=== PATIENT | female | born 1995 | race Caucasian/White ===

== ENCOUNTER → 2017-12-09 | Outpatient (CLI) | payer OTHER ==
--- NOTE | 2017-12-10 08:11 | MR ---
EXAMINATION TYPE: MR brain wo con DATE OF EXAM: 12/09/2017 COMPARISON: No prior available at this institution. HISTORY: Headaches; Arachnoid cyst TECHNIQUE: Multiplanar, multisequence images of the brain and brainstem is performed without intravenous contras t. The patient also was offered intravenous contrast and declined. FINDINGS: There is a T2/FLAIR hyperintense left frontal extra-axial lesion with mass effect upon the frontal gyri and sulci although no subsequent edema is seen within the white matter of the left front al lobe. This does not restricted diffusion. This measures 5.9 x 2.1 x 5.2 cm in longitudinal by ante rior posterior by craniocaudal dimension on T2 axial fat sat and T2 coronal nonfat sat image 20 and 5 respectively. No others suspicious extra cranial fluid collections are seen. Diffusion weighted images demonstrate no evidence of a recent infarct or other diffusion abnormality. There is no extra-axial fluid collection or significant white matter signal abnormality. The ventr icular system and cisternal spaces are normal in size and appearance. The brain volume is age approp riate. Midline structures demonstrate normal morphology. The craniocervical junction appears within normal limits. The dural venous sinuses appear patent. There is mild leftward nasal septal deviation. Scant mucosal thickening is seen within the ethmoid sinuses. The remaining visualized sinuses are clear and the globes are intact. T2/FLAIR hyperintense bilateral parotid lesions have the appearance of intrap arotid lymph nodes. IMPRESSION: 1. Left frontal extra-axial fluid intensity lesion measuring up to 5.9 cm most compatible with an ortiz chnoid cyst with mass effect upon the left frontal lobe and no resultant intracranial edema or gliosi s. No midline shift. 2. Very mild ethmoid paranasal sinus disease.
== END | disposition home or self-care (01) ==
LOC: RADMRIMAIN 12:33
PROVIDERS: ATTEND Physician Assistant
DX: G93.0 Cerebral cysts (principal); J32.2 Chronic ethmoidal sinusitis
CPT/HCPCS: 70551

== ENCOUNTER 2020-03-03 18:19 | Emergency (ER) | payer OTHER ==
[2020-03-03 18:25] VITALS: BP 116/76; PULSE 77; RESP 18; TEMP 97.9
--- NOTE | 2020-03-03 20:02 | ED ---
General Adult HPI - General Chief complaint: ENT Stated complaint: Poss oral abscess Time Seen by Provider: 03/03/20 18:40 Source: patient, RN notes reviewed, old records reviewed Mode of arrival: ambulatory Limitations: no limitations - History of Present Illness Initial comments: 24-year-old female patient ED for evaluation of sore throat. She reports that she had a mild sore throat for couple days. She also reports that she had a little bit of discomfort in her right side anterior cervical lymph nodes. She was concerned because it appeared that she had some tonsillar exudates last night so she wanted to be evaluated today. She denies any other acute complaints. She denies any fevers. Systemic: Pt denies fatigue, fever/chills, rash. Pt denies weakness, night sweats, weight loss. Neuro: Pt denies headache, visual disturbances, syncope or pre-syncope. HEENT: Pt denies ocular discharge or irritation, otalgia, rhinorrhea, pharyngitis or notable lymphadenopathy. Cardiopulmonary: Pt denies chest pain, SOB, heart palpitations, dyspnea on exertion. Abdominal/GI: Pt denies abdominal pain, n/v/d. : Pt denies dysuria, burning w/ urination, frequency/urgency. Denies new onset urinary or bowel incontinence. MSK: Pt denies myalgia, loss of strength or function in extremities. Neuro: Pt denies new onset weakness, paresthesias. - Related Data Allergies Allergy/AdvReac Type Severity Reaction Status Date / Time No Known Allergies Allergy Verified 03/03/20 18:25 Review of Systems ROS Statement: Those systems with pertinent positive or pertinent negative responses have been documented in the HPI. ROS Other: All systems not noted in ROS Statement are negative. Past Medical History Additional Past Medical History / Comment(s): brain cyst. History of Any Multi-Drug Resistant Organisms: None Reported Past Surgical History: No Surgical Hx Reported Past Psychological History: No Psychological Hx Reported Smoking Status: Never smoker Past Alcohol Use History: None Reported Past Drug Use History: None Reported General Exam - General Exam Comments Initial Comments: Constitutional: NAD, AOX3, Pt has pleasant affect. HEENT: NC/AT, trachea midline, neck supple, mild anterior cervical lympadenopathy. Posterior pharynx non erythematous, without exudates. External ears appear normal, without discharge. Mucous membranes moist. Eyes PERRLA, EOM intact. There is no scleral icterus. No pallor noted. Cardiopulmonary: RRR, no murmurs, rubs or gallops, no JVD noted. Lungs CTAB in anterior and posterior ferrer. No peripheral edema. Abdominal exam: Abdomen soft and non-distended. Abdomen non-tender to palpation in all 4 quadrants. Bowel sounds active in LLQ. No hepatosplenomegaly. No ecchymosis Neuro: CN II-XII grossly intact. No nuchal rigidity. MSK: No posterior calf tenderness bilaterally, homans sign negative bilaterally. Posterior tibialis and radial pulse +2 bilaterally. Sensation intact in upper and lower extremities. Full active ROM in upper and lower extremities, 5/5 stregnth. Limitations: no limitations Course Vital Signs 03/03/20 18:22 Temperature 97.9 F Pulse Rate 77 Respiratory 18 Rate Blood Pressure 116/76 O2 Sat by Pulse 100 Oximetry Medical Decision Making - Medical Decision Making 24-year-old female patient ED for evaluation of sore throat. She reports that she had a mild sore throat for couple days. She also reports that she had a little bit of discomfort in her right side anterior cervical lymph nodes. She was concerned because it appeared that she had some tonsillar exudates last night so she wanted to be evaluated today. She denies any other acute complaints. She denies any fevers. Pt VSS, afebrile. Physical exam displayed: Posterior pharynx non erythematous, without exudates. There is a mild right-s ided anterior cervical lymphadenopathy noted no skin changes or erythema. Group A strep is negative. Culture pending. Patient was experiencing a viral pharyngitis X syndrome. She'll be discharged outpatient follow-up supportive care and return precautions. She is agreeable to plan. Case discussed with Dr. Claire. - Lab Data Lab Results 03/03/20 Range/Units 19:00 Group A Strep Rapid Negative (Negative) Disposition Clinical Impression: Pharyngitis Disposition: HOME SELF-CARE Condition: Stable Instructions (If sedation given, give patient instructions): Pharyngitis (ED) Additional Instructions: Follow up with PCP tomorrow. Return to ED with any worsening symptoms. Is patient prescribed a controlled substance at d/c from ED?: No Referrals: Valerie Barlow MD [Primary Care Provider] - 1-2 days
== END 2020-03-03 20:12 | disposition home or self-care (01) ==
LOC: EC 18:19
DX: J02.9 Acute pharyngitis, unspecified (principal)
CPT/HCPCS: 87081; 87430; 99283

== ENCOUNTER 2020-06-15 12:11 | Emergency (ER) | payer OTHER ==
[2020-06-15 12:47] VITALS: RESP 18
[2020-06-15 13:55] LABS: ALT 34 U/L (4-34); AST 25 U/L (14-36); African American GFR (CKD) >90 (>60 ml/min/1.73 sqM); Albumin 4.9 g/dL (3.5-5.0); Alkaline Phosphatase 72 U/L (38-126); Anion Gap 11 mmol/L; Blood Urea Nitrogen 6 mg/dL (7-17); Calcium 10.1 mg/dL (8.4-10.2); Carbon Dioxide 26 mmol/L (22-30); Chloride 102 mmol/L (98-107); Glucose 84 mg/dL (74-99); Non-African American GFR(CKD) >90 (>60 ml/min/1.73 sqM); Sodium 139 mmol/L (137-145); Total Bilirubin 0.6 mg/dL (0.2-1.3); Total Protein 8.1 g/dL (6.3-8.2)
[2020-06-15 14:01] LABS: Basophils % (A) 0 %; Eosinophils % (A) 0 %; HCT 42.4 % (34.0-46.0); HGB 13.8 gm/dL (11.4-16.0); Lymphocytes # (A) 1.5 k/uL (1.0-4.8); Lymphocytes % (A) 16 %; MCH 28.5 pg (25.0-35.0); MCHC 32.5 g/dL (31.0-37.0); MCV 87.7 fL (80.0-100.0); Mean Platelet Volume 7.3; Monocytes # (A) 0.3 k/uL (0-1.0); Monocytes % (A) 3 %; Neutrophils # (A) 7.2 k/uL (1.3-7.7); Neutrophils % (A) 79 %; Platelet Count 288 k/uL (150-450); RBC 4.83 m/uL (3.80-5.40); RDW 12.8 % (11.5-15.5); WBC 9.2 k/uL (3.8-10.6)
--- NOTE | 2020-06-15 14:12 | ED ---
General Adult HPI - General Source: patient Mode of arrival: ambulatory Limitations: no limitations <Trini Gamez - Last Filed: 06/15/20 14:34> <Jesse Angeles - Last Filed: 06/15/20 15:27> - General Chief complaint: Recheck/Abnormal Lab/Rx Stated complaint: possible blood clot-post J&J vaccine Time Seen by Provider: 06/15/20 12:45 - History of Present Illness Initial comments: 24-year-old female presenting to the emergency department today for chief complaint of sent by primary care provider. Patient states she had an elevated d-dimer. She had presented to her primary care provider for pain all over and having severe headaches after the [employer] vaccine. Patient denies any light sensitivity. She states she has had nosebleeds. Patient states that time she has burning in her chest, denies significant dyspnea. Denies chest pressure/pleuritic pain. Patient denies leg swelling, calf pain. Patient denies visual/speech changes, weakness, sensation deficits. Patient denies hx of surgery, immobilization she denies she denies control use she denies smoking history, she denies recent travel, cancer, IVDU. Patient appears nontoxic on arrival she is resting in bed in no distress. Pt admitted to being very health paranoid and was scared since the announcement of J&J vaccine pause. (Trini Gamez) CTA of the brain shows no acute abnormality. Chest x-ray shows no acute abnormality. (Jesse Angeles) - Related Data Allergies Allergy/AdvReac Type Severity Reaction Status Date / Time No Known Allergies Allergy Verified 06/15/20 12:41 Review of Systems ROS Other: All systems not noted in ROS Statement are negative. <Trini Gamez - Last Filed: 06/15/20 14:34> ROS Other: All systems not noted in ROS Statement are negative. <Jesse Angeles - Last Filed: 06/15/20 15:27> ROS Statement: Those systems with pertinent positive or pertinent negative responses have been documented in the HPI. Past Medical History Past Medical History: No Reported History Additional Past Medical History / Comment(s): brain cyst. orthostatic hypotension History of Any Multi-Drug Resistant Organisms: None Reported Past Surgical History: No Surgical Hx Reported Past Psychological History: Anxiety Smoking Status: Never smoker Past Alcohol Use History: None Reported Past Drug Use History: None Reported <Trini Gamez - Last Filed: 06/15/20 14:34> General Exam Limitations: no limitations <Trini Gamez - Last Filed: 06/15/20 14:34> - General Exam Comments Initial Comments: General: The patient is awake and alert, in no distress Eye: +3 mm pupils are equal, round and reactive to light, extra-ocular movements are intact. No nystagmus. There is normal conjunctiva bilaterally. No signs of icterus. Ears, nose, mouth and throat: There are moist mucous membranes and no oral lesions. Neck: The neck is supple, there is no tenderness or JVD. Cardiovascular: There is a regular rate and rhythm. No murmur, rub or gallop is appreciated. Respiratory: Lungs are clear to auscultation, respirations are non-labored, breath sounds are equal. No wheezes, stridor, rales, or rhonchi. Musculoskeletal: Normal ROM, no tenderness. Strength 5/5. Sensation intact. Radial and DP pulses equal bilaterally 2+. Neurological: A&O x 3. CN II-XII intact, There are no obvious motor or sensory deficits. Coordination appears grossly intact. Speech is normal. Skin: Skin is warm and dry and no rashes or lesions are noted. Psychiatric: Cooperative, appropriate mood & affect, normal judgment. (Trini Gamez) Course <Trini Gamez - Last Filed: 06/15/20 14:34> Vital Signs 06/15/20 12:42 Temperature 98.8 F Pulse Rate 95 Respiratory 18 Rate Blood Pressure 144/90 O2 Sat by Pulse 100 Oximetry - Reevaluation(s) Reevaluation #1: Discussed risk vs benefit of CTA of chest-pt states she was just told she needed this for burning in chest, and body pains. pt states she was worried around her brain due to the J&J vaccine. pt states she is very health paranoid-- she states she has had over [address] in her entire life. I discussed risk of radiation, that patient is PERC (-). I discussed with my attending patient case Dr. Astorga who is agreeable to fore-going CTA at this time as patient states she has headache, nose bleeds and thinks it is due to the vaccine. 06/15/20 14:08 (Trini Gamez) Reevaluation #2: signed out to Dr. Angeles aware of history/care plan/pending studies 06/15/20 14:34 (Trini Gamez) Medical Decision Making - Lab Data Result diagrams: 06/15/20 13:24 06/15/20 13:24 <Trini Gamez - Last Filed: 06/15/20 14:34> - Lab Data Result diagrams: 06/15/20 13:24 06/15/20 13:24 <Jesse Angeles - Last Filed: 06/15/20 15:27> - Lab Data Lab Results 06/15/20 06/15/20 Range/Units 13:24 13:24 WBC 9.2 (3.8-10.6) k/uL RBC 4.83 (3.80-5.40) m/uL Hgb 13.8 (11.4-16.0) gm/dL Hct 42.4 (34.0-46.0) % MCV 87.7 (80.0-100.0) fL MCH 28.5 (25.0-35.0) pg MCHC 32.5 (31.0-37.0) g/dL RDW 12.8 (11.5-15.5) % Plt Count 288 (150-450) k/uL MPV 7.3 Neutrophils % 79 % Lymphocytes % 16 % Monocytes % 3 % Eosinophils % 0 % Basophils % 0 % Neutrophils # 7.2 (1.3-7.7) k/uL Lymphocytes # 1.5 (1.0-4.8) k/uL Monocytes # 0.3 (0-1.0) k/uL Eosinophils # 0.0 (0-0.7) k/uL Basophils # 0.0 (0-0.2) k/uL Sodium 139 (137-145) mmol/L Potassium 4.0 (3.5-5.1) mmol/L Chloride 102 (98-107) mmol/L Carbon Dioxide 26 (22-30) mmol/L Anion Gap 11 mmol/L BUN 6 L (7-17) mg/dL Creatinine 0.71 (0.52-1.04) mg/dL Est GFR (CKD-EPI)AfAm >90 (>60 ml/min/1.73 sqM) Est GFR (CKD-EPI)NonAf >90 (>60 ml/min/1.73 sqM) Glucose 84 (74-99) mg/dL Calcium 10.1 (8.4-10.2) mg/dL Total Bilirubin 0.6 (0.2-1.3) mg/dL AST 25 (14-36) U/L ALT 34 (4-34) U/L Alkaline Phosphatase 72 (38-126) U/L Total Protein 8.1 (6.3-8.2) g/dL Albumin 4.9 (3.5-5.0) g/dL Disposition <Trini Gamez - Last Filed: 06/15/20 14:34> Is patient prescribed a controlled substance at d/c from ED?: No Time of Disposition: 15:27 <Jesse Angeles - Last Filed: 06/15/20 15:27> Clinical Impression: Headache Disposition: HOME SELF-CARE Condition: Good Instructions (If sedation given, give patient instructions): Acute Headache (ED) Referrals: Valerie Barlow MD [Primary Care Provider] - 1-2 days
--- NOTE | 2020-06-15 14:34 | CT ---
EXAMINATION TYPE: CT brain wo/w con DATE OF EXAM: 06/15/2020 COMPARISON: MR brain 12/09/2018 HISTORY: [place], J&J side effects CT DLP: 2188.4 mGycm Automated Exposure Control for Dose Reduction was Utilized. TECHNIQUE: CT scan of the head is performed with IV contrast.,CT scan of the head is performed withou t and with without and with IV Contrast, patient injected with 100 mL of Isovue 300. FINDINGS: Hypodense focus corresponding to the abnormality described in prior brain MRI is noted at the left frontal region with some local mass effect consistent with arachnoid cyst, there is remodeli ng of the inner table of the calvarium. Noncontrast images show no acute intracranial hemorrhage or m idline shift. The ventricles and sulci are within normal limits in size. Postcontrast images show no suspicious enhancing intraparenchymal mass. The globes are intact and the visualized sinuses are olivia r. IMPRESSION: There is an arachnoid cyst as described in prior brain MRI. No abnormal enhancement. No h ydrocephalus or evident hemorrhage.
--- NOTE | 2020-06-15 14:48 | XR ---
EXAMINATION TYPE: XR chest 2V DATE OF EXAM: 06/15/2020 COMPARISON: 09/18/2008 INDICATION: Headache, burning TECHNIQUE: Frontal and lateral views of the chest are obtained. FINDINGS: The heart size is normal. The pulmonary vasculature is normal. The lungs are clear. IMPRESSION: 1. No acute pulmonary process.
[2020-06-15 15:29] VITALS: BP 114/66; PULSE 98; TEMP 98.2
== END 2020-06-15 15:55 | disposition home or self-care (01) ==
LOC: EC 12:11
DX: R51.9 Headache, unspecified (principal)
CPT/HCPCS: 36415; 80053; 85025; 71046; 70470; 99284; Q9967

== ENCOUNTER 2020-06-17 09:51 | Emergency (ER) | payer OTHER ==
[2020-06-17 10:02] VITALS: TEMP 97.9
[2020-06-17] MEDS ORDERED: SODIUM CHLORIDE 0.9% 1,000 ML IV STA (12:11)
[2020-06-17] MEDS ORDERED: KETOROLAC 15 MG/ML 1 ML VIAL IVP STA (12:12)
--- NOTE | 2020-06-17 12:20 | ED ---
SOB HPI - General Chief Complaint: Shortness of Breath Stated Complaint: Heart Palpatations/Racing Time Seen by Provider: 06/17/20 11:45 Source: patient, RN notes reviewed Mode of arrival: wheelchair Limitations: no limitations - History of Present Illness Initial Comments: This is a 24-year-old female who did receive the [employer] COVID-19 shot and also was here 2 days with emergency department for complaints of not feeling well basically who is here today with complaints of palpitations and shortness of breath and bilateral leg pain body aches headache she states she has chest pain goes were back. She is doesn't feel well. She was have bilateral venous Dopplers of her legs today but her family physician advised to just come and get evaluated. She currently had a CAT scan of brain done any other day which was negative and x-ray which was negative. She is complaining of increased symptoms. She did have a mildly elevated d-dimer and the knee. Additionally she states she had a last period was the fifth through the 10th of this month. She denies any chest pain . MD Complaint: shortness of breath, chest pain - Related Data Previous Rx's Medication Instructions Recorded Cephalexin [Keflex] 250 mg PO Q6HR #28 cap 06/17/20 Allergies Allergy/AdvReac Type Severity Reaction Status Date / Time No Known Allergies Allergy Verified 06/17/20 12:53 Review of Systems ROS Statement: Those systems with pertinent positive or pertinent negative responses have been documented in the HPI. ROS Other: All systems not noted in ROS Statement are negative. Past Medical History Past Medical History: No Reported History Additional Past Medical History / Comment(s): brain cyst. orthostatic hypotension History of Any Multi-Drug Resistant Organisms: None Reported Past Surgical History: No Surgical Hx Reported Past Psychological History: Anxiety Smoking Status: Never smoker Past Alcohol Use History: None Reported Past Drug Use History: None Reported General Exam - General Exam Comments Initial Comments: This is a well-developed well-nourished awake alert oriented 3 female Limitations: no limitations General appearance: alert, anxious Head exam: Present: atraumatic, normocephalic, normal inspection Eye exam: Present: normal appearance, PERRL, EOMI. Absent: scleral icterus, conjunctival injection, periorbital swelling ENT exam: Present: normal exam, mucous membranes moist Neck exam: Present: normal inspection, full ROM, other (Those Phenergan or bruits). Absent: tenderness, meningismus, lymphadenopathy Respiratory exam: Present: normal lung sounds bilaterally. Absent: respiratory distress, wheezes, rales, rhonchi, stridor Cardiovascular Exam: Present: regular rate, normal rhythm, normal heart sounds. Absent: systolic murmur, diastolic murmur, rubs, gallop, clicks GI/Abdominal exam: Present: soft, normal bowel sounds. Absent: distended, tenderness, guarding, rebound, rigid Extremities exam: Present: normal inspection, full ROM, normal capillary refill. Absent: tenderness, pedal edema, joint swelling, calf tenderness Back exam: Present: normal inspection Neurological exam: Present: alert, oriented X3, CN II-XII intact Psychiatric exam: Present: normal affect, normal mood Skin exam: Present: warm, dry, intact, normal color. Absent: rash Course Vital Signs 06/17/20 06/17/20 09:57 11:03 Temperature 97.9 F Pulse Rate 97 76 Respiratory 18 18 Rate Blood Pressure 119/74 102/60 O2 Sat by Pulse 99 100 Oximetry Medical Decision Making - Medical Decision Making I did discuss the findings with the patient. Imaging studies are negative at work is negative the UA however show evidence of UTI. Based on appropriate medication she is a follow-up with her doctor and return if any problems. At this time post Covid shot etiology for the symptoms cannot be ruled out complete ly. - Lab Data Result diagrams: 06/17/20 12:39 06/17/20 12:39 Lab Results 06/17/20 06/17/20 06/17/20 Range/Units 12:39 12:39 12:39 WBC 9.3 (3.8-10.6) k/uL RBC 4.74 (3.80-5.40) m/uL Hgb 14.2 (11.4-16.0) gm/dL Hct 40.8 (34.0-46.0) % MCV 86.0 (80.0-100.0) fL MCH 29.9 (25.0-35.0) pg MCHC 34.7 (31.0-37.0) g/dL RDW 12.2 (11.5-15.5) % Plt Count 301 (150-450) k/uL MPV 7.0 Neutrophils % 75 % Lymphocytes % 18 % Monocytes % 5 % Eosinophils % 1 % Basophils % 0 % Neutrophils # 6.9 (1.3-7.7) k/uL Lymphocytes # 1.7 (1.0-4.8) k/uL Monocytes # 0.5 (0-1.0) k/uL Eosinophils # 0.1 (0-0.7) k/uL Basophils # 0.0 (0-0.2) k/uL PT 10.6 (9.0-12.0) sec INR 1.0 (<1.2) APTT 22.0 (22.0-30.0) sec D-Dimer 0.51 (<0.60) mg/L FEU Sodium 141 (137-145) mmol/L Potassium 4.0 (3.5-5.1) mmol/L Chloride 104 (98-107) mmol/L Carbon Dioxide 27 (22-30) mmol/L Anion Gap 10 mmol/L BUN 7 (7-17) mg/dL Creatinine 0.63 (0.52-1.04) mg/dL Est GFR (CKD-EPI)AfAm >90 (>60 ml/min/1.73 sqM) Est GFR (CKD-EPI)NonAf >90 (>60 ml/min/1.73 sqM) Glucose 94 (74-99) mg/dL Plasma Lactic Acid Miguel Angel (0.7-2.0) mmol/L Calcium 9.8 (8.4-10.2) mg/dL Magnesium 2.2 (1.6-2.3) mg/dL Total Bilirubin 0.6 (0.2-1.3) mg/dL AST 27 (14-36) U/L ALT 37 H (4-34) U/L Alkaline Phosphatase 72 (38-126) U/L Creatine Kinase 34 (30-135) U/L Troponin I (0.000-0.034) ng/mL NT-Pro-B Natriuret Pep pg/mL Total Protein 8.1 (6.3-8.2) g/dL Albumin 4.8 (3.5-5.0) g/dL Urine Color Urine Appearance (Clear) Urine pH (5.0-8.0) Ur Specific Bruin (1.001-1.035) Urine Protein (Negative) Urine Glucose (UA) (Negative) Urine Ketones (Negative) Urine Blood (Negative) Urine Nitrite (Negative) Urine Bilirubin (Negative) Urine Urobilinogen (<2.0) mg/dL Ur Leukocyte Esterase (Negative) Urine WBC (0-5) /hpf Ur Squamous Epith Cells (0-4) /hpf Urine Bacteria (None) /hpf Urine Mucus (None) /hpf Coronavirus (PCR) (Not Detectd) 06/17/20 06/17/20 06/17/20 Range/Units 12:39 12:39 12:39 WBC (3.8-10.6) k/uL RBC (3.80-5.40) m/uL Hgb (11.4-16.0) gm/dL Hct (34.0-46.0) % MCV (80.0-100.0) fL MCH (25.0-35.0) pg MCHC (31.0-37.0) g/dL RDW (11.5-15.5) % Plt Count (150-450) k/uL MPV Neutrophils % % Lymphocytes % % Monocytes % % Eosinophils % % Basophils % % Neutrophils # (1.3-7.7) k/uL Lymphocytes # (1.0-4.8) k/uL Monocytes # (0-1.0) k/uL Eosinophils # (0-0.7) k/uL Basophils # (0-0.2) k/uL PT (9.0-12.0) sec INR (<1.2) APTT (22.0-30.0) sec D-Dimer (<0.60) mg/L FEU Sodium (137-145) mmol/L Potassium (3.5-5.1) mmol/L Chloride (98-107) mmol/L Carbon Dioxide (22-30) mmol/L Anion Gap mmol/L BUN (7-17) mg/dL Creatinine (0.52-1.04) mg/dL Est GFR (CKD-EPI)AfAm (>60 ml/min/1.73 sqM) Est GFR (CKD-EPI)NonAf (>60 ml/min/1.73 sqM) Glucose (74-99) mg/dL Plasma Lactic Acid Miguel Angel 1.0 (0.7-2.0) mmol/L Calcium (8.4-10.2) mg/dL Magnesium (1.6-2.3) mg/dL Total Bilirubin (0.2-1.3) mg/dL AST (14-36) U/L ALT (4-34) U/L Alkaline Phosphatase (38-126) U/L Creatine Kinase (30-135) U/L Troponin I <0.012 (0.000-0.034) ng/mL NT-Pro-B Natriuret Pep 22 pg/mL Total Protein (6.3-8.2) g/dL Albumin (3.5-5.0) g/dL Urine Color Urine Appearance (Clear) Urine pH (5.0-8.0) Ur Specific Bruin (1.001-1.035) Urine Protein (Negative) Urine Glucose (UA) (Negative) Urine Ketones (Negative) Urine Blood (Negative) Urine Nitrite (Negative) Urine Bilirubin (Negative) Urine Urobilinogen (<2.0) mg/dL Ur Leukocyte Esterase (Negative) Urine WBC (0-5) /hpf Ur Squamous Epith Cells (0-4) /hpf Urine Bacteria (None) /hpf Urine Mucus (None) /hpf Coronavirus (PCR) (Not Detectd) 06/17/20 06/17/20 Range/Units 12:39 12:39 WBC (3.8-10.6) k/uL RBC (3.80-5.40) m/uL Hgb (11.4-16.0) gm/dL Hct (34.0-46.0) % MCV (80.0-100.0) fL MCH (25.0-35.0) pg MCHC (31.0-37.0) g/dL RDW (11.5-15.5) % Plt Count (150-450) k/uL MPV Neutrophils % % Lymphocytes % % Monocytes % % Eosinophils % % Basophils % % Neutrophils # (1.3-7.7) k/uL Lymphocytes # (1.0-4.8) k/uL Monocytes # (0-1.0) k/uL Eosinophils # (0-0.7) k/uL Basophils # (0-0.2) k/uL PT (9.0-12.0) sec INR (<1.2) APTT (22.0-30.0) sec D-Dimer (<0.60) mg/L FEU Sodium (137-145) mmol/L Potassium (3.5-5.1) mmol/L Chloride (98-107) mmol/L Carbon Dioxide (22-30) mmol/L Anion Gap mmol/L BUN (7-17) mg/dL Creatinine (0.52-1.04) mg/dL Est GFR (CKD-EPI)AfAm (>60 ml/min/1.73 sqM) Est GFR (CKD-EPI)NonAf (>60 ml/min/1.73 sqM) Glucose (74-99) mg/dL Plasma Lactic Acid Miguel Angel (0.7-2.0) mmol/L Calcium (8.4-10.2) mg/dL Magnesium (1.6-2.3) mg/dL Total Bilirubin (0.2-1.3) mg/dL AST (14-36) U/L ALT (4-34) U/L Alkaline Phosphatase (38-126) U/L Creatine Kinase (30-135) U/L Troponin I (0.000-0.034) ng/mL NT-Pro-B Natriuret Pep pg/mL Total Protein (6.3-8.2) g/dL Albumin (3.5-5.0) g/dL Urine Color Yellow Urine Appearance Cloudy H (Clear) Urine pH 7.5 (5.0-8.0) Ur Specific Bruin 1.003 (1.001-1.035) Urine Protein Negative (Negative) Urine Glucose (UA) Negative (Negative) Urine Ketones Negative (Negative) Urine Blood Negative (Negative) Urine Nitrite Negative (Negative) Urine Bilirubin Negative (Negative) Urine Urobilinogen <2.0 (<2.0) mg/dL Ur Leukocyte Esterase Large H (Negative) Urine WBC 8 H (0-5) /hpf Ur Squamous Epith Cells 6 H (0-4) /hpf Urine Bacteria Many H (None) /hpf Urine Mucus Rare H (None) /hpf Coronavirus (PCR) Not Detected (Not Detectd) - EKG Data -: EKG Interpreted by Me EKG shows normal: sinus rhythm EKG Comments: Sinus tachycardia rate 114 [place] interval 124 QRS 94 QT since QTC 320/441 nonspecific T-wave configuration - Radiology Data Radiology results: report reviewed (G reviewed no evidence of DVT chest x-ray clear.), image reviewed Disposition Clinical Impression: Urinary tract infection, Myalgia Disposition: HOME SELF-CARE Condition: Good Instructions (If sedation given, give patient instructions): Urinary Tract Infection in Women (ED), Musculoskeletal Pain (ED) Additional Instructions: Symptomatic treatment with Tylenol or Advil. Prescriptions: Cephalexin [Keflex] 250 mg PO Q6HR #28 cap Is patient prescribed a controlled substance at d/c from ED?: No Referrals: Valerie Barlow MD [Primary Care Provider] - 1-2 days
[2020-06-17 13:07] LABS: Basophils % (A) 0 %; Eosinophils # (A) 0.1 k/uL (0-0.7); Eosinophils % (A) 1 %; HCT 40.8 % (34.0-46.0); HGB 14.2 gm/dL (11.4-16.0); Lymphocytes # (A) 1.7 k/uL (1.0-4.8); Lymphocytes % (A) 18 %; MCH 29.9 pg (25.0-35.0); MCHC 34.7 g/dL (31.0-37.0); Monocytes # (A) 0.5 k/uL (0-1.0); Monocytes % (A) 5 %; Neutrophils # (A) 6.9 k/uL (1.3-7.7); Neutrophils % (A) 75 %; Platelet Count 301 k/uL (150-450); RBC 4.74 m/uL (3.80-5.40); RDW 12.2 % (11.5-15.5); WBC 9.3 k/uL (3.8-10.6)
--- NOTE | 2020-06-17 13:08 | XR ---
EXAMINATION TYPE: XR chest 2V DATE OF EXAM: 06/17/2020 COMPARISON: 06/15/2020 HISTORY: 24 year-old female shortness of breath, difficulty breathing TECHNIQUE: PA and lateral views FINDINGS: The cardiomediastinal silhouette, aorta, and pulmonary vasculature are within normal limits. Lungs an d pleural spaces are clear. IMPRESSION: No acute cardiopulmonary process.
[2020-06-17 13:17] LABS: ALT 37 U/L (4-34); AST 27 U/L (14-36); African American GFR (CKD) >90 (>60 ml/min/1.73 sqM); Albumin 4.8 g/dL (3.5-5.0); Alkaline Phosphatase 72 U/L (38-126); Anion Gap 10 mmol/L; Appearance,Urine Cloudy (Clear); Bacteria,Urine Many /hpf; Bilirubin,Urine Negative (Negative); Blood Urea Nitrogen 7 mg/dL (7-17); Blood,Urine Negative (Negative); Calcium 9.8 mg/dL (8.4-10.2); Carbon Dioxide 27 mmol/L (22-30); Chloride 104 mmol/L (98-107); Color,Urine Yellow; Creatine Kinase 34 U/L (30-135); Glucose 94 mg/dL (74-99); Glucose,Urine (UA) Negative (Negative); Ketones,Urine Negative (Negative); Leukocyte Esterase,Urine Large (Negative); Magnesium 2.2 mg/dL (1.6-2.3); Mucus,Urine Rare /hpf; Nitrite,Urine Negative (Negative); Non-African American GFR(CKD) >90 (>60 ml/min/1.73 sqM); PH, Urine 7.5 (5.0-8.0); Protein,Urine Negative (Negative); Sodium 141 mmol/L (137-145); Specific Gravity,Urine 1.003 (1.001-1.035); Squamous Epithelial Cell,Urine 6 /hpf (0-4); Total Bilirubin 0.6 mg/dL (0.2-1.3); Total Protein 8.1 g/dL (6.3-8.2); Urobilinogen,Urine <2.0 mg/dL (<2.0); WBC,Urine 8 /hpf (0-5)
[2020-06-17 13:40] LABS: D-Dimer 0.51 mg/L FEU (<0.60); Prothrombin Time 10.6 sec (9.0-12.0)
--- NOTE | 2020-06-17 13:52 | US ---
EXAMINATION TYPE: US venous doppler duplex LE DATE OF EXAM: 06/17/2020 1:45 PM COMPARISON: NONE CLINICAL HISTORY: Leg pain, positive d-dimer. SIDE PERFORMED: Bilateral TECHNIQUE: The lower extremity deep venous system is examined utilizing real time linear array sonog cosme with graded compression, doppler sonography and color-flow sonography. VESSELS IMAGED: Common Femoral Vein Deep Femoral Vein Greater Saphenous Vein * Femoral Vein Popliteal Vein Small Saphenous Vein * Proximal Calf Veins (* superficial vessels) Right Leg: Negative for DVT Left Leg: Negative for DVT IMPRESSION: 1. Bilateral lower extremity ultrasound negative for deep venous thrombosis.
[2020-06-17] MEDS ORDERED: CEPHALEXIN 500 MG CAP PO STA (14:28)
[2020-06-17 14:41] VITALS: BP 115/77; PULSE 91; RESP 16
== END 2020-06-17 14:42 | disposition home or self-care (01) ==
LOC: EC 09:51
DX: N39.0 Urinary tract infection, site not specified (principal); M79.10 Myalgia, unspecified site; F41.9 Anxiety disorder, unspecified; Z20.822 Contact with and (suspected) exposure to COVID-19
CPT/HCPCS: 36415; 93005; 85379; 83880; 80053; 82550; 83605; 83735; 84484; 85025; 85610; 85730; 81001; 87040; 87635; 71046; 93970; 99285; 96374; 96361; J1885